=== PATIENT | male | born 1990 | race Caucasian/White ===

== ENCOUNTER → 2016-05-06 | Outpatient (CLI) | payer MEDICARE, MEDICAID ==
--- NOTE | 2016-05-06 15:49 | RAD ---
EXAM DESCRIPTION: XR ABDOMEN 1 VIEW (KUB) CLINICAL HISTORY: BILATERAL RENAL STONES COMPARISON: January 15, 2016 with FINDINGS: Several faint calcifications project over the kidneys bilaterally, and these could represent either small renal calculi or artifact from superimposed bowel contents. An IVC filter remains in place. A left ureteral stent present on the previous exam has been removed. No calcification is seen along the expected course of either ureter. IMPRESSION: Possible bilateral nephrolithiasis versus artifact from superimposed bowel contents. No radiographically apparent ureteral calculus. Electronically signed by: hCacorta Novoa DO 05/06/2016 15:48
== END ==
LOC: RAD 12:58
PROVIDERS: ATTEND Urology
DX: N20.0 Calculus of kidney (principal)

== ENCOUNTER 2016-05-30 15:20 | Emergency (ER) | payer MEDICARE, MEDICAID ==
[2016-05-30] MEDS ORDERED: KETOROLAC TROMETHAMINE INJ 30 MG/ML VIAL IV ONE (16:03)
[2016-05-30] MEDS ORDERED: SODIUM CHLORIDE 0.9% (FLUSH) 10 ML SYG IV PRN (16:03)
[2016-05-30] MEDS ORDERED: ONDANSETRON INJ 4 MG/2 ML VIAL IV ONE (16:03)
[2016-05-30] MEDS ORDERED: MORPHINE SULFATE INJ 10 MG/ML VIAL IV ONE (16:04)
[2016-05-30] MEDS ORDERED: SODIUM CHLORIDE 0.9% 10 ML VIAL ONE (16:31)
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
[2016-05-30] MEDS ORDERED: PIPERACILLIN/TAZOBACTAM 4.5 GM in SODIUM CHLORIDE 0.9% 100ML 100 ML IVPB ONE (18:22)
[2016-05-30] MEDS ORDERED: SODIUM CHLORIDE 0.9% 1000ML 1,000 ML IVS ONE (18:22)
[2016-05-30] MEDS ORDERED: PIPERACILLIN/TAZOBACTAM 2.25 GM VIAL IVPB ONE (18:37)
[2016-05-30] MEDS ORDERED: SODIUM CHLORIDE 0.9% 100ML 100 ML IVPB ONE (18:37)
[2016-05-30 18:58] VITALS: BP 117/75; TEMP 96.9; O2SAT 99
--- NOTE | 2016-06-23 23:51 | CT ---
EXAM: Abdomen/Pelvis w/Contrast CLINICAL INDICATION: 26-year-old male with LEFT upper quadrant abdominal pain and elevated WBC. EXAMINATION: CT of the abdomen and pelvis was performed following intravenous administration of contrast. Oral contrast was not administered. Multiplanar reformatted images were provided. FINDINGS: Chest: Evaluation through the lung bases reveals no focal opacity, pleural effusion or pneumothorax. Heart size is within normal limits. No pericardial effusion. Abdomen and pelvis: The liver, gallbladder, pancreas, spleen, and bilateral adrenal glands are within normal limits. Dilated appearance of the bilateral renal pelvis with hazy appearance of the cortical medullary differentiation and perinephric stranding of the fat planes, enhancement and hydroureter bilaterally with periureteral stranding findings of which are concerning for bilateral pyelonephritis. Moderate to severe LEFT hydronephrosis and hydroureter to the level of the mid ureter where there is obstruction by a large calculus measuring approximately 5 x 6 mm, (series 2, image 64). On the RIGHT there is chronic appearing severe hydronephrosis with multifocal coarse calcification compatible with nonobstructing calculi however raising the question of xanthogranulomatous pyelonephritis. There is diffuse obscuration of the perinephric fat planes, renal pelvis and ureter with enhancement of the ureter concerning for infectious process. No obstructing calculus is identified on the RIGHT. The vessels are patent and normal in caliber. No abdominopelvic lymph nodes are noted to be pathologically enlarged by CT measurement criteria. The bowel is within normal limits with extensive contrast material and fecal debris present throughout the large bowel. There is no abnormal bowel wall thickness or bowel dilation. No free air. No free abdominopelvic fluid collections. The appendix is within normal limits. The osseous structures are within normal limits. Battery pack present at the level of the anterior RIGHT hemiabdominal subcutaneous fat tissues with line terminating at the level of the L4 spinous process continuing intrathecally and terminating cephalad at the T9-10 level. IMPRESSION: 1. Diffuse hazy appearance of the bilateral kidneys with perinephric, periureteral stranding and ureteral enhancement with effacement of the renal pelvis fat planes and hazy appearance of the cortical medullary differentiation concerning for infectious process. 2. LEFT hydronephrosis and hydroureter to the level of the mid LEFT ureter secondary to 5 x 6 mm obstructing calculus. 3. 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 Further assessment with nuclear medicine scintigraphy may be considered. Electronically signed by: Leora Verde MD 05/30/2016 6:12 PM LINDERMAN MACHINE OPERATOR
--- NOTE | 2016-06-24 05:20 | RAD ---
EXAM: Abdomen Flat Upright CLINICAL INDICATION: 26-year-old male with abdominal pain and nausea. COMPARISON: None. FINDINGS:Two views of the abdomen were obtained in upright and supine positioning.Gas is seen within normal caliber small and large bowel. Extensive volume of inspissated fecal material is present throughout the large bowel suggesting fecal stasis, constipation. Battery pack overlies and obscures portions of the RIGHT hemiabdomen with lead tip terminating at the L4 level projection. IVC filter present. No free air is identified.There are no abnormal calcifications. The osseous structures are within normal limits.The lung bases are clear. IMPRESSION: Extensive volume of inspissated fecal material is present throughout the large bowel suggesting fecal stasis, constipation. Electronically signed by: Leora Verde MD 05/30/2016 4:39 PM INTERNIST MEDICAL DOCTOR MD
== END 2016-05-30 19:12 | disposition short-term general hospital (02) ==
LOC: ER 15:20
DX: N10 Acute pyelonephritis (principal); N20.1 Calculus of ureter
CPT/HCPCS: 36415; 74010; 74177; 80048; 80076; 81001; 83605; 83690; 85025; 87086; J1885; J2270; J2405; J2543; J7030; J7050

== ENCOUNTER → 2016-07-01 | Outpatient (CLI) | payer MEDICARE, MEDICAID ==
--- NOTE | 2016-07-01 14:41 | RAD ---
EXAM DESCRIPTION: XR ABDOMEN 1 VIEW (KUB) CLINICAL HISTORY: Renal stones. COMPARISON: May 30, 2016 TECHNIQUE: KUB FINDINGS: Mottled stool noted throughout the colon. Nonspecific small bowel gas pattern. Electronic device overlying the right upper quadrant and DVT filter in place. Densities within the right upper quadrant. IMPRESSION: Subtle densities overlying the lateral aspect of the right mid pole of kidney. Renal stones versus gallbladder stones cannot be excluded. Electronically signed by: Zacarias Corrales MD 07/01/2016 2:40 PM RIB KNITTER
== END | disposition home or self-care (01) ==
LOC: US 13:40
PROVIDERS: ATTEND Urology
DX: N20.0 Calculus of kidney (principal)

== ENCOUNTER → 2016-10-21 | Outpatient (CLI) | payer MEDICARE, MEDICAID ==
--- NOTE | 2016-10-22 08:39 | RAD ---
EXAM DESCRIPTION: KUB CLINICAL HISTORY: 26 years, Male, KIDNEY STONES COMPARISON: July 01 FINDINGS: Nonspecific bowel gas pattern. Stable position of vena cava filter, metallic density overlying L4 region. Generator right lower quadrant. Subtle densities overlying the right upper quadrant in the 6- 7 mm range similar to prior study probably representing nonobstructing kidney stones. No definite stone over course of either ureter. IMPRESSION: No significant difference compared to July 01. Probable nonobstructing right kidney stones again noted. Bowel gas pattern nonspecific. Electronically signed by: Godfrey Kamara MD 10/22/2016 8:38 AM CDT
== END | disposition home or self-care (01) ==
LOC: LAB.O 13:35
PROVIDERS: ATTEND Urology
DX: N20.0 Calculus of kidney (principal)

== ENCOUNTER → 2017-01-27 | Outpatient (CLI) | payer MEDICARE, MEDICAID ==
--- NOTE | 2017-01-28 09:52 | RAD ---
HISTORY: CALCULUS OF KIDNEY AND URETER TECHNIQUE: Single frontal view of the abdomen. COMPARISON: Study dated 10/21/2016. Additionally, correlation is also made to CT of the abdomen and pelvis dated 06/23/2015. FINDINGS: Nonobstructive bowel gas pattern with a large stool burden and gas seen throughout the colon to the level of the rectum. No gas-distended loops of small bowel are seen. Faint calcifications are again seen projecting over the right renal shadow with no calcifications currently appreciated over the left renal shadow or along the expected course of the ureters. An IVC filter remains in place. Battery pack is again seen projecting over the right lower quadrant with a single lead which projects over the region of the right transverse process of L4. Visualized bones are within normal limits. IMPRESSION: No significant interval change from time of prior exam as above. [address] Electronically signed by: Wilner Aceveod 01/28/2017 9:51 AM CDT Workstation: [id number]
== END | disposition home or self-care (01) ==
LOC: RAD 11:17
PROVIDERS: ATTEND Urology
DX: N20.0 Calculus of kidney (principal)

== ENCOUNTER → 2017-06-30 | Outpatient (CLI) | payer MEDICARE, MEDICAID ==
--- NOTE | 2017-06-30 14:02 | RAD ---
EXAM DESCRIPTION: KUB CLINICAL HISTORY: KIDNEY STONES COMPARISON: January 27, 2017 TECHNIQUE: Frontal views of abdomen and pelvis FINDINGS: IVC filter is stable in position. Linear metallic artifact or electrode tip continues to project just to the right of L4 vertebrae. Electronic device also noted projecting over superior right iliac crest. Several gas-filled but not abnormally distended bowel loops identified in abdomen and pelvis. No pneumatosis nor intraperitoneal free air. No pathologic calcification clearly seen overlying either renal contour. Bony structures in lumbar spine and in pelvis appear intact without injury. Visualized portions of the lung bases are grossly clear. IMPRESSION: No bowel obstruction or intraperitoneal free air No obvious calcific urolithiasis on either side. Stable position of IVC filter and electronic device. Electronically signed by: Tee Weeks MD 06/30/2017 2:01 PM OVERNIGHT CAREGIVER
== END ==
LOC: RAD 13:01
PROVIDERS: ATTEND Urology
DX: N20.0 Calculus of kidney (principal)

== ENCOUNTER → 2018-01-12 | Outpatient (CLI) | payer MEDICARE, MEDICAID ==
--- NOTE | 2018-01-12 17:10 | CT ---
EXAM DESCRIPTION: Abdomen/Pelvis w/o Contrast: Computed Tomography. CLINICAL HISTORY: R/O RIGHT AND LEFT RENAL COLLECTING STONE COMPARISON: Abdominal pelvic radiograph 06/30/2017. TECHNIQUE: Spiral-axial scans at 5 x 5 mm intervals through the abdomen and pelvis. Coronal and sagittal 2.0mm reconstructions. No IV or oral contrast. Total Exam DLP: 583.84 mGy-cm. This exam was performed according to our departmental CT dose-optimization program which includes automated exposure control, adjustment of the mA and/or kV according to patient size and/or use of iterative reconstruction technique; to reduce radiation dose to as low as reasonably achievable (ALARA). FINDINGS: Kidneys And Ureters: multiple calculi in the left kidney that were not present on the prior study. One cluster in the left upper pole measures 2.2 x 1.7 x 1.3 cm. A single stone slightly more inferior measures 7 x 6 mm. In the mid collecting system is a 5 mm radiodense stone. 3 stones in the inferior collecting system measure 4 mm, 6 mm and 5 mm. A large complex radiodense cast, measuring 4.3 cm in length and 1.8 cm in width, extends from the inferior collecting system into the proximal left ureter, and is contributing to moderate hydronephrosis in the left kidney. Thickened vinson of the proximal left ureter but no hydroureter or radiodense stone. Multiple calculi in the right kidney ranging in size from 1.2 cm to 3 mm. At least 12 stones are visualized. Moderate hydronephrosis in the right kidney with minimal perinephric edema. Periureteral edema in the right ureter throughout its entire length but no radiodense stones in the ureter or the ureterovesical junction. Pelvic Organs: Thickening of the urinary bladder wall with no radiodense stones. Lung and pleura bases: Negative. Liver, spleen, stomach, and adrenal glands: Stomach minimally distended with fluid. Spleen is small and lobulated, barbell shaped measuring approximately 4.7 cm. Liver is negative with right lobe long axis measuring 16.6 cm. Pancreas, Gallbladder, Ducts: Gallbladder visualized. Pancreas tail is abutting the small spleen otherwise unremarkable. No definite duct dilation. Aorta: Negative. Small Bowel: Normal caliber. Terminal Ileum/Cecum: Normal caliber of the TI and cecum with fecal material in the cecum. Retrocecal appendix measures 8 to 10 mm in diameter with small lymph nodes abutting the cecum and the appendix. Slightly thicker than on the prior study. No new mesenteric stranding or fascial thickening or fluid collection. Colon: Fecal material from the cecum to the mid descending colon and also distending the distal sigmoid and the rectum. Asymmetric thickening of the posterior wall of the mid rectum, on axial sequence 2, images 75-78. This was not seen on the prior study.. Mesentery: No stranding, no fascial thickening, no free air or fluid. Spine and Bony Pelvis: Lumbar levoscoliosis. Minimal bilateral hip joint space narrowing. Abdominal Wall/Back Soft Tissues: Electronic monitor or polyp in the anterior right subcutaneous tissues at the level of the upper right pelvis. IMPRESSION: 1. Significant increase in calcifications in the left kidney since the prior study with moderate hydronephrosis. Largest cast extends from the inferior collecting system into the proximal left ureter measuring over 5 cm in length, almost 2 cm in width. Significant increase in stones in the right kidney with moderate hydronephrosis. The largest stones are over 1.6 cm in length. No radiodense stones in the mid or distal ureters bilaterally or the urinary bladder. 2. Appendix is distended but no significant fatty stranding or fascial thickening or fluid collection around the appendix. Correlate for point tenderness or other clinical findings of appendicitis. 3. Constipation proximal mid and distal colon. Compression of the eccentric mass on the posterior wall of the proximal rectum, not seen on the prior study.. Electronically signed by: Howie Kohli MD 01/12/2018 5:08 PM CDT
== END ==
LOC: CT 14:37
PROVIDERS: ATTEND Urology
DX: N20.0 Calculus of kidney (principal); K59.00 Constipation, unspecified; R10.84 Generalized abdominal pain

== ENCOUNTER → 2018-05-05 | Outpatient (CLI) | payer MEDICARE, MEDICAID | LOC: GMAE 15:36 | PROVIDERS: ATTEND Family Medicine | DX: Z01.818 Encounter for other preprocedural examination (principal); G82.50 Quadriplegia, unspecified; G89.4 Chronic pain syndrome; Z51.81 Encounter for therapeutic drug level monitoring ==

== ENCOUNTER 2018-06-24 16:30 | Emergency (ER) | payer MEDICARE, MEDICAID ==
[2018-06-24 16:45] VITALS: BP 149/85; TEMP 97.7; O2SAT 100
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
[2018-06-24] MEDS ORDERED: HYDROcodone 5MG/APAP 325MG 1 EA TAB PO ONE (16:54)
--- NOTE | 2018-06-24 17:04 | RAD ---
EXAM DESCRIPTION: Shoulder,Right 2 or More Views CLINICAL HISTORY: pain after fall COMPARISON: None Available. TECHNIQUE: Two views of the right shoulder. FINDINGS: No glenohumeral malalignment or dislocation. Bones appear osteopenic. The humeral head is normally aligned with the glenoid. Oblique fracture through the peripheral clavicle is seen with moderate comminution and overlap of fragments. The more medial major fragment is displaced superiorly 2 cm. There is mild impaction. No separation at the AC joint. IMPRESSION: Comminuted fracture of the peripheral right clavicle. Electronically signed by: Jose Oleary MD 06/24/2018 5:01 PM [facility]
== END 2018-06-24 17:30 | disposition home or self-care (01) ==
LOC: ER 16:30
DX: S42.031A Displaced fracture of lateral end of right clavicle, initial encounter for closed fracture (principal); Z87.828 Personal history of other (healed) physical injury and trauma; Z79.899 Other long term (current) drug therapy; W05.0XXA Fall from non-moving wheelchair, initial encounter; Y92.9 Unspecified place or not applicable

== ENCOUNTER → 2018-07-27 | Outpatient (CLI) | payer MEDICARE, MEDICAID ==
--- NOTE | 2018-07-28 09:55 | RAD ---
EXAM DESCRIPTION: KUB CLINICAL HISTORY: KIDNEY STONE COMPARISON: None. TECHNIQUE: AP supine abdomen FINDINGS: An implanted pain device is observed in the right lower quadrant. An inferior vena caval filter is noted the bowel gas pattern is normal. No organomegaly is seen. No pathologic calcifications are observed. A 9 mm diameter calculus is seen to overlie the right kidney. No left renal calculi are observed. Large amount stool is observed throughout the colon. IMPRESSION: 1. A 9 mm diameter calculus is seen to overlie the right kidney. Electronically signed by: Wilner Osman MD 07/28/2018 9:52 AM CDT
== END ==
LOC: RAD 13:53
PROVIDERS: ATTEND Urology
DX: N20.0 Calculus of kidney (principal)

== ENCOUNTER → 2018-07-30 | Outpatient (CLI) | payer MEDICARE, MEDICAID ==
--- NOTE | 2018-07-30 11:18 | RAD ---
EXAM DESCRIPTION: Clavicle,Right CLINICAL HISTORY: 28 years Male, S42.001D COMPARISON: Previous study June 24, 2018 FINDINGS: Comminuted fracture of the peripheral right clavicle is seen with overlap of the fragments. Bridging callus formation has developed since the previous study. The alignment of the fragments is similar to previous exam. Slight widening of the AC joint. Glenohumeral alignment is normal. IMPRESSION: Comminuted fracture of the peripheral right clavicle with developing callus of early healing. Electronically signed by: Jose Oleary MD 07/30/2018 11:15 AM CDT
== END ==
LOC: RAD 08:46
PROVIDERS: ATTEND Orthopaedic Surgery
DX: S42.001D Fracture of unspecified part of right clavicle, subsequent encounter for fracture with routine healing (principal)

== ENCOUNTER → 2018-09-07 | Outpatient (CLI) | payer MEDICARE, MEDICAID ==
--- NOTE | 2018-09-08 07:57 | RAD ---
EXAM: KUB CLINICAL HISTORY: KIDNEY STONE COMPARISON STUDY: 2 view abdomen July 27, [address] abdomen pelvis January 12, 2018 TECHNICAL: Flat and upright views of the abdomen were performed. FINDINGS: Two views of the abdomen show a large amount of stool throughout the colon. There is no bowel obstruction. There is no evidence of free air. The bones are negative. Bilateral intrarenal calculi are present. The largest calculus on the right measures 12 mm. The largest calculus seen on the left is 15 mm and located medial and slightly inferior. The kidneys are partially obscured by colonic stool. An IVC filter is again noted. There is a metallic object in the posterior soft tissues associated with an implantable mechanical device in the right anterior abdominal wall. IMPRESSION: 1. Multiple bilateral intrarenal calculi with the largest and more medial in the left possibly within the proximal ureter. 2. Large amount stool suggests constipation. Electronically signed by: Ranjith Reid MD 09/08/2018 7:55 AM CDT
== END ==
LOC: RAD 14:22
PROVIDERS: ATTEND Urology
DX: N20.0 Calculus of kidney (principal)

== ENCOUNTER → 2018-09-10 | Outpatient (CLI) | payer MEDICARE, MEDICAID ==
--- NOTE | 2018-09-10 10:30 | RAD ---
EXAM DESCRIPTION: Clavicle,Right CLINICAL HISTORY: 28 years Male, S42.001D COMPARISON: Previous x-ray of the right clavicle July 30, 2018 FINDINGS: Right clavicle two x-ray views. Comminuted fracture of the peripheral right clavicle is seen. Bridging callus formation is noted. The gap between the fracture fragments appear somewhat decreased. Major peripheral fragment aligns with the AC joint. Upper lungs are clear. Degenerative spurring at the right glenohumeral joint. IMPRESSION: Healing fracture of the peripheral right clavicle. No change of alignment. Electronically signed by: Jose Oleary MD 09/10/2018 10:28 AM CDT
== END ==
LOC: RAD 09:17
PROVIDERS: ATTEND Orthopaedic Surgery
DX: S42.001D Fracture of unspecified part of right clavicle, subsequent encounter for fracture with routine healing (principal)

== ENCOUNTER → 2019-01-11 | Outpatient (CLI) | payer MEDICARE, MEDICAID ==
--- NOTE | 2019-01-12 17:07 | RAD ---
EXAM DESCRIPTION: KUB CLINICAL HISTORY: RENAL STONES COMPARISON: 07 Sep 2018 TECHNIQUE: AP supine abdomen FINDINGS: An implanted pain pump observed along the right side of the abdomen. An inferior vena caval filters observed in place with position unchanged. The bowel gas pattern is normal. Bilateral renal calcifications are observed and remain essentially unchanged. The bowel gas pattern is normal. No organomegaly is seen. IMPRESSION: Bilateral renal calcifications are observed unchanged from the previous exam. Electronically signed by: Wilner Osman MD 01/12/2019 5:05 PM CDT
== END ==
LOC: RAD 14:32
PROVIDERS: ATTEND Urology
DX: N20.0 Calculus of kidney (principal)

== ENCOUNTER → 2019-06-07 | Outpatient (CLI) | payer MEDICARE, MEDICAID | LOC: LAB.O 16:34 | PROVIDERS: ATTEND Physical Medicine & Rehabilitation | DX: M61.9 Calcification and ossification of muscle, unspecified (principal) ==

== ENCOUNTER 2019-10-14 21:44 | Emergency (ER) | payer MEDICARE, MEDICAID ==
[2019-10-14 22:01] VITALS: TEMP 98.8; O2SAT 98
[2019-10-14 23:10] VITALS: BP 152/83
[2019-10-14] MEDS ORDERED: HYDROcodone 7.5MG/APAP 325MG 1 EA TAB PO ONE (23:42)
[2019-10-14] MEDS ORDERED: AMOXICILLIN & POT CLAVULANATE 875 MG TAB PO ONE (23:42)
[2019-10-14] MEDS ORDERED: CIPROFLOXACIN 500 MG TAB PO ONE (23:42)
[2019-10-14] MEDS ORDERED: KETOROLAC TROMETHAMINE INJ 30 MG/ML VIAL IM ONE (23:42)
--- NOTE | 2019-10-14 23:48 | ED.PDOC ---
History of Present Illness - General Chief Complaint: Abdominal Pain Time Seen by Provider: 10/14/19 21:58 Source: patient, family Exam Limitations: no limitations - History of Present Illness Initial Comments: Patient is a 29-year-old male who is wheelchair-bound due to previous medical problems presenting to the emergency room secondary to vague abdominal and left-sided flank pain. The patient has had a history of multiple kidney stones in the past. They have on occasion felt like this. He is a patient of Dr. Osei. No fevers. Symptoms have been off and on for the last 24 hours. No syncope. No vomiting. We do not really have labs within the last 2 years for comparison. He does have a history of some constipation. Mild intermittent nausea as well. Timing/Duration: 24 hours Severity: moderate Improving Factors: nothing Worsening Factors: nothing Associated Symptoms: loss of appetite Allergies/Adverse Reactions: Allergies NO KNOWN ALLERGY Allergy (Verified 05/30/16 15:54) Home Medications: Ambulatory Orders Baclofen 2,000 mcg INJ DAILY 04/21/15 Potassium Citrate (Alkalinizer [Potassium Citrate ER] 1,080 mg PO BID 04/21/15 Acetamin W/Cod #3 Tab [Tylenol w/CODEINE #3] 1 ea PO Q4HR #30 tab 06/24/18 Amoxicillin & Pot Clavulanate [Augmentin Tab] 875 mg PO BID #20 tab 10/14/19 Ciprofloxacin [Cipro] 500 mg PO BID #20 tab 10/14/19 Tramadol HCl 50 mg PO Q8HR PRN #20 tab 10/14/19 Review of Systems - Review of Systems Constitutional: States: no symptoms reported EENTM: States: no symptoms reported Respiratory: States: no symptoms reported Cardiology: States: no symptoms reported Gastrointestinal/Abdominal: States: abdominal pain, nausea Genitourinary: States: no symptoms reported Musculoskeletal: States: back pain Skin: States: no symptoms reported Neurological: States: no symptoms reported - Chronic changes only Endocrine: States: no symptoms reported All other Systems: No Change from Baseline Past Medical History (General) - Patient Medical History Hx Seizures: No Hx Stroke: No Hx Dementia: No Hx Asthma: No Hx of COPD: No Hx Cardiac Disorders: No Hx Congestive Heart Failure: No Hx Pacemaker: No Hx Hypertension: No Hx Thyroid Disease: No Hx Diabetes: No Hx Gastroesophageal Reflux: No Hx Renal Disease: No Hx Cancer: No Hx of HIV: No Hx Hepatitis C: No Hx MRSA: No Surgical History: other - Vaccination History Hx Tetanus, Diphtheria Vaccination: Yes Hx Influenza Vaccination: No Hx Pneumococcal Vaccination: No - Social History Hx Tobacco Use: Yes - Vape Hx Chewing Tobacco Use: No Hx Alcohol Use: Yes Hx Substance Use: No Hx Substance Use Treatment: No Hx Depression: No Feels Threatened In Home Enviroment: No Feels Threatened In a Relationship: No Hx Physical Abuse: No Hx Emotional Abuse: No Hx Suspected Abuse: No - Female History Patient is a Female of Child Bearing Age (10 -59 yrs old): No - Triage Comment ED Triage Comment: The patient is complaining of upper left and right quadrant abdominal pain that radiats to his back right side. Family Medical History - Family History Mother Family History: No Known Living Status: Still Living Physical Exam - Physical Exam General Appearance: Alert, Anxious Eye Exam: bilateral normal Ears, Nose, Throat: hearing grossly normal, normal pharynx Neck: non-tender - Previous tracheostomy site is noted, supple Respiratory: no respiratory distress, no accessory muscle use Cardiovascular/Chest: normal peripheral pulses, no edema Peripheral Pulses: radial,right: 2+, radial,left: 2+ Gastrointestinal/Abdominal: non tender, soft Rectal Exam: deferred Back Exam: CVA tenderness (L) Extremity: normal range of motion - Given his chronic limitations, no pedal edema, normal capillary refill Neurologic: blintze roller II-XII nml as tested, alert, normal mood/affect, oriented x 3 Skin Exam: normal color Comments: Vital Signs - 24 hr 10/14/19 10/14/19 10/14/19 21:55 22:44 23:00 Temperature 98.8 F Pulse Rate [ 75 68 88 Pulse Ox] Respiratory 16 18 18 Rate Blood Pressure 127/71 137/89 152/83 [Left Arm] O2 Sat by Pulse 98 98 98 Oximetry 10/14/19 22:09 Abdomen Flat & Upright [RAD] Stat moderate stool in the ascending colon. No obstruction. No obvious perforation. Official read is still pending due to transmission difficulties. 10/14/19 22:12 Urine Culture Stat 10/14/19 23:09 Abdoment/Pelvis w/o Contrast [CT] Stat by my limited read the patient has an obstructing 1.1 cm stone about long term down the left ureter. He does have multiple chronic renal cystic type structures. Official read is still pending due to transmission difficulty of the images due to complications with [employer]. Family and patient do understand that I am not a radiologist. The report will be reviewed when it comes in. Laboratory Results - last 24 hr 10/14/19 10/14/19 10/14/19 22:12 23:03 23:03 WBC 19.8 H RBC 5.34 Hgb 15.0 Hct 45.8 MCV 85.9 MCH 28.1 MCHC 32.7 L RDW 15.2 H Plt Count 311 MPV 8.8 Absolute Neuts (auto) 15.20 H Absolute Lymphs (auto) 2.30 Absolute Monos (auto) 2.10 H Absolute Eos (auto) 0.00 Absolute Basos (auto) 0.10 Neutrophils % 77.1 Lymphocytes % 11.5 L Monocytes % 10.5 H Eosinophils % 0.2 L Basophils % 0.7 Sodium 137 Potassium 3.5 L Chloride 104 Carbon Dioxide 22 Anion Gap 14.5 BUN 26 H Creatinine 2.23 H BUN/Creatinine Ratio 11.7 Random Glucose 94 Serum Osmolality 278.3 Lactic Acid Calcium 9.1 Total Bilirubin 0.7 AST 21 ALT 17 Alkaline Phosphatase 74 Serum Total Protein 8.3 H Albumin 4.3 Globulin 4.0 H Albumin/Globulin Ratio 1.1 Amylase 75 Lipase Urine Color Other Urine Appearance Cloudy Urine pH 7.5 Ur Specific Crawford 1.020 Urine Protein 100 H Urine Glucose (UA) Negative Urine Ketones 15 H Urine Blood Large H Urine Nitrite Negative Urine Bilirubin Negative Urine Urobilinogen 0.2 Ur Leukocyte Esterase Large H Urine RBC Tntc H Urine WBC Tntc H Ur Epithelial Cells 0 Urine Bacteria 3+ H 10/14/19 10/14/19 23:03 23:03 WBC RBC Hgb Hct MCV MCH MCHC RDW Plt Count MPV Absolute Neuts (auto) Absolute Lymphs (auto) Absolute Monos (auto) Absolute Eos (auto) Absolute Basos (auto) Neutrophils % Lymphocytes % Monocytes % Eosinophils % Basophils % Sodium Potassium Chloride Carbon Dioxide Anion Gap BUN Creatinine BUN/Creatinine Ratio Random Glucose Serum Osmolality Lactic Acid 1.0 Calcium Total Bilirubin AST ALT Alkaline Phosphatase Serum Total Protein Albumin Globulin Albumin/Globulin Ratio Amylase Lipase 31 Urine Color Urine Appearance Urine pH Ur Specific Crawford Urine Protein Urine Glucose (UA) Urine Ketones Urine Blood Urine Nitrite Urine Bilirubin Urine Urobilinogen Ur Leukocyte Esterase Urine RBC Urine WBC Ur Epithelial Cells Urine Bacteria Progress - Progress Progress: 10/14/19 23:51 The patient is a 29-year-old male presented emergency room with what appears to be abdominal and flank pain due to an obstructing left mid ureteral stone approximately 1.1 cm in width. Official read for the CT scan is still pending due to transmission difficulties with [employer] at this time. Once the final report is back we will review it to see if there is any other pathology noted, and intervene further as needed. The patient has a significantly abnormal urinalysis and a moderately elevated white blood cell count. This does seem to indicate what is most likely a chronic urinary tract infection. Urine is being cultured. The patient does not appear to be septic. The patient is going to be placed on Augmentin and ciprofloxacin for double coverage, with first dose is given tonight. Family is to contact Dr. Osei in the morning to make arrangements for follow-up and intervention as soon as possible. A copy of the disc is being sent for Dr. Osei's review. Family and patient agree with this plan. They have deferred admission or transfer at this time. He will also be written for some tramadol for pain control as an outpatient. ER warnings are given for any worsening. mary hidalgo [phone] 10/14/19 23:58 [facility] consulted Departure - Departure Clinical Impression: Calcium ureterolithiasis Urinary tract infection Qualifiers: Urinary tract infection type: site unspecified Hematuria presence: without tanna turia Qualified Code(s): N39.0 - Urinary tract infection, site not specified Leukocytosis Qualifiers: Leukocytosis type: lymphocytosis Qualified Code(s): D72.820 - Lymphocytosis (symptomatic) Disposition: Discharge to Home or Self Care Condition: Fair Departure Forms: ED Discharge - Pt. Copy, Patient Portal Self Enrollment Instructions: Kidney Stones (DC), Urinary Tract Infections in Adults Diet: regular diet Activity: increase activity as tolerated Referrals: Juma Honeycutt MD [Primary Care Provider] - 1-5 Days Prescriptions: Tramadol HCl 50 mg PO Q8HR PRN #20 tab PRN Reason: Moderate Pain Amoxicillin & Pot Clavulanate [Augmentin Tab] 875 mg PO BID #20 tab Ciprofloxacin [Cipro] 500 mg PO BID #20 tab Home Medications: Ambulatory Orders Baclofen 2,000 mcg INJ DAILY 04/21/15 Potassium Citrate (Alkalinizer [Potassium Citrate ER] 1,080 mg PO BID 04/21/15 Acetamin W/Cod #3 Tab [Tylenol w/CODEINE #3] 1 ea PO Q4HR #30 tab 06/24/18 Amoxicillin & Pot Clavulanate [Augmentin Tab] 875 mg PO BID #20 tab 10/14/19 Ciprofloxacin [Cipro] 500 mg PO BID #20 tab 10/14/19 Tramadol HCl 50 mg PO Q8HR PRN #20 tab 10/14/19 Additional Instructions: The patient is a 29-year-old male presented emergency room with what appears to be abdominal and flank pain due to an obstructing left mid ureteral stone approximately 1.1 cm in width. Official read for the CT scan is still pending due to transmission difficulties with [employer] at this time. Once the final report is back we will review it to see if there is any other pathology noted, and intervene further as needed. The patient has a significantly abnormal urinalysis and a moderately elevated white blood cell count. This does seem to indicate what is most likely a chronic urinary tract infection. Urine is being cultured. The patient does not appear to be septic. The patient is going to be placed on Augmentin and ciprofloxacin for double coverage, with first dose is given tonight. Family is to contact Dr. Osei in the morning to make arrangements for follow-up and intervention as soon as possible. A copy of the disc is being sent for Dr. Osei's review. Family and patient agree with this plan. They have deferred admission or transfer at this time. He will also be written for some tramadol for pain control as an outpatient. ER warnings are given for any worsening.
--- NOTE | 2019-10-15 05:17 | RAD ---
EXAM: XR Abdomen, 2 Views CLINICAL HISTORY: The patient is 29 years old and is Male; upper abd pain TECHNIQUE: Two views total of the abdomen/pelvis including upright view of the abdomen. COMPARISON: January 11, 2019. FINDINGS: Lower thorax: Lung bases are clear. Intraperitoneal space: No free air. Gastrointestinal tract: Gas in the right and transverse colon. No dilated bowel loops or evidence of obstruction. Organs: Right nephrolithiasis again noted. Bones/joints: No acute fracture visualized. Tubes, lines and devices: IVC filter again noted. Electronic monitor stimulator device again noted in the right anterior abdomen wall. IMPRESSION: 1. Gas in the right and transverse colon. No dilated bowel loops or evidence of obstruction. 2. Right nephrolithiasis again noted. 3. Devices as above. Electronically signed by: Melita Amato MD 10/15/2019 5:15 AM CDT
--- NOTE | 2019-10-15 05:17 | CT ---
EXAM: CT Abdomen and Pelvis Without Intravenous Contrast CLINICAL HISTORY: The patient is 29 years old and is Male; uti leukocytosis, hx kidney stones TECHNIQUE: Axial computed tomography images of the abdomen and pelvis without intravenous contrast. Sagittal and coronal reformatted images were created and reviewed. This CT exam was performed using one or more of the following dose reduction techniques: automated exposure control, adjustment of the mA and/or kV according to patient size, and/or use of iterative reconstruction technique. COMPARISON: CT of the abdomen and pelvis January 12, 2018 FINDINGS: LUNG BASES: Unremarkable. No mass. No consolidation. ABDOMEN: LIVER: Homogeneous without focal mass. GALLBLADDER AND BILE DUCTS: No calcified stones. No ductal dilation. PANCREAS: The pancreas is mildly atrophic. No ductal dilation. SPLEEN: Several splenules are noted within the left upper quadrant. ADRENALS: Unremarkable. No mass. KIDNEYS AND URETERS: Severe left hydronephrosis and proximal/mid hydroureter is present secondary to multiple large left ureteral calculi, the distal most calculus measures 2 cm in craniocaudal dimension. Edema of the left kidney with perinephric and periureteral stranding is present. Moderate to severe right hydronephrosis is present. Cortical thinning of both kidneys is noted. Bilateral large intrarenal calcifications are present. STOMACH AND BOWEL: Stomach is minimally distended. The small bowel is normal in caliber. Stool is noted within the right colon. There is no mucosal thickening or evidence of bowel obstruction. PELVIS: APPENDIX: No findings to suggest acute appendicitis. BLADDER: The bladder is not well distended. REPRODUCTIVE: Unremarkable as visualized. ABDOMEN and PELVIS: INTRAPERITONEAL SPACE: Unremarkable. No free air. No significant fluid collection. BONES/JOINTS: No acute fracture. SOFT TISSUES: Present at the level of the anterior right hemiabdomen subcutaneous tissues with the line terminating at the level of the L4 spinous process and continuing intrathecally and terminates cephalad to T9-T10 level. VASCULATURE: And infrarenal IVC filter is in place. No abdominal aortic aneurysm. LYMPH NODES: Unremarkable. No enlarged lymph nodes. OTHER FINDINGS: . IMPRESSION: 1. Severe left hydronephrosis and proximal/mid hydroureter is present secondary to multiple large left ureteral calculi, the distal most calculus measures 2 cm in craniocaudal dimension. The left kidney is edematous with moderate perinephric stranding. 2. Large bilateral nephrolithiasis with bilateral severe hydronephrosis, chronic in appearance. Electronically signed by: Vinita Valadez MD 10/15/2019 5:15 AM CDT
== END 2019-10-15 00:05 | disposition home or self-care (01) ==
LOC: ER 21:44
DX: N20.1 Calculus of ureter (principal); N39.0 Urinary tract infection, site not specified; D72.829 Elevated white blood cell count, unspecified; Z87.442 Personal history of urinary calculi; F17.290 Nicotine dependence, other tobacco product, uncomplicated
CPT/HCPCS: 36415; 74019; 74176; 80053; 81001; 82150; 83605; 83690; 85025; 87086; J1885

== ENCOUNTER → 2019-10-18 | Outpatient (CLI) | payer MEDICARE, MEDICAID ==
--- NOTE | 2019-10-19 07:38 | RAD ---
EXAM DESCRIPTION: Chest,2 Views CLINICAL HISTORY: PRE OP COMPARISON: None FINDINGS: Two-view chest x-ray shows cardiomediastinal silhouette and pulmonary vasculature to be within normal limits. The lungs are normally aerated and clear. Costophrenic angles are sharp. Osseous structures are unremarkable IMPRESSION: No radiographic evidence of acute cardiopulmonary disease. Electronically signed by: Smooth Mcgrath MD 10/19/2019 7:37 AM CDT
== END ==
LOC: LAB.O 14:02
PROVIDERS: ATTEND Urology
DX: Z01.818 Encounter for other preprocedural examination (principal); N20.0 Calculus of kidney; N20.1 Calculus of ureter

== ENCOUNTER → 2020-05-15 | Outpatient (CLI) | payer MEDICARE, MEDICAID ==
--- NOTE | 2020-05-16 07:52 | RAD ---
EXAM DESCRIPTION: KUB CLINICAL HISTORY: LEFT RENAL STONE COMPARISON: January 11, 2019 IMPRESSION: Single AP supine view of the abdomen obtained on 2 radiographs shows a nonspecific, nonobstructive bowel gas pattern. Kidneys are partly secured by overlying bowel gas and stool in the colon. Calcification seen overlying the lower pole region of the left kidney on previous exam are not appreciated on today's exam, but Could Be Obscured by Overlying Bowel Gas. The Calcification Seen to the Left of L1 and L2 in the Proximal Ureter on Previous Exam Are Also Resolved. IVC filter remains in place. Pain infusion pump over the right mid abdomen is again seen. Electronically signed by: Smooth Mcgrath MD 05/16/2020 7:51 AM TALKBACK HOST
== END ==
LOC: RAD 14:41
PROVIDERS: ATTEND Urology
DX: N20.2 Calculus of kidney with calculus of ureter (principal); Z95.828 Presence of other vascular implants and grafts

== ENCOUNTER → 2020-06-05 | Outpatient (CLI) | payer MEDICARE, MEDICAID ==
--- NOTE | 2020-06-06 12:01 | CT ---
EXAM DESCRIPTION: Abdoment/Pelvis w/o Contrast: Computed Tomography. CLINICAL HISTORY: HEMATURIA COMPARISON: CT scan of the abdomen and pelvis noncontrast September 2019. TECHNIQUE: Spiral-axial scans at 2.5 x 2.5 mm intervals through the abdomen and pelvis. Coronal and sagittal 2.0 mm reconstructions. No IV or oral contrast. Total Exam DLP: 762 mGy-cm. This exam was performed according to our departmental CT dose-optimization program which includes automated exposure control, adjustment of the mA and/or kV according to patient size and/or use of iterative reconstruction technique; to reduce radiation dose to as low as reasonably achievable (ALARA). FINDINGS: Kidneys: cystlike structures versus dilated calyces in the left kidney. The largest is in the lateral mid cortex measuring 4.7 x 4.3 cm but appears to communicate with the renal pelvis. Cystlike structure 1.6 x 1.6 x 1.5 cm stone in the inferior collecting system of the upper pole associated with debris extending into the upper renal pelvis. Superior medial left kidney containing debris and a 10 x 10 mm stone. 12 x 7 mm stone more laterally in the upper collecting system. 3 additional smaller stones in the upper collecting system with greatest diameter 10 mm or less. 15 x 9.6 x 5.9 mm stone in the junction of the lower collecting system and inferior renal pelvis. 10.6 x 6.5 mm stone in the posterior mid collecting system. 7.8 x 5.5 mm stone along with complex stone measuring 12.7 x 6 x 8.2 mm in the inferior collecting system. Hydronephrosis less severe in the lower collecting system. Moderate hydronephrosis in the right renal collecting system. Largest stone in the inferior aspect of the superior collecting system measures 13 x 6 mm. Collection of gravel and a stone measuring 7 x 5 mm in the posterior mid collecting system. Largest stone in the inferior collecting system measures 15 x 11 x 12 mm and is posterior. Smaller stone in the very inferior collecting system measures 8 x 6 mm. Ureters: Marked hydronephrosis of the proximal and mid left ureter with minimal periureteral edema. 2 elongated stone casts are seen in the ureter at the level of the upper sacrum with long axis parallel to the ureteral lumen measuring 1.5 cm proximal cast and the distal cast is 1.9 cm. The ureteral caliber just above these casts is 1.4 x 1.3 cm. Ureter distal to these casts is normal caliber with no periureteral edema. Right ureter is unremarkable. Minimal edema around the proximal ureter but no radiodense stones. Pelvic Organs: Minimal distention of the urinary bladder with no radiodense stones. No free fluid in the pelvis. Prostate gland largest transverse dimension is 4.1 x 2.4 cm with minimal impression on the base and posterior inferior urinary bladder wall. Prostate also impressing on the seminal vesicles. No large masses in the pelvic cavity. Lung and pleura bases: Subpleural groundglass nodules in the lung bases 5 mm or less in diameter. No consolidating infiltrate or pleural effusion. Liver, spleen, stomach, and adrenal glands: Uniform density of the liver. Spleen is small and interpreted to be represented by a bilobed structure measuring 5.6 x 3.1 cm. Stomach is small. Adrenal glands stable. Pancreas, Gallbladder, Ducts: Gallbladder small. Normal caliber of the common bile duct. Pancreatic duct not well seen. No focal enlargement in the pancreas or peripancreatic fatty changes. Aorta: Normal caliber with 2.0 x 2.1 x 0.9 cm lymph node at the level of L2-L3, inferior to the right renal artery; other smaller periaortic nodes on the right. However elongated left periaortic mass is visualized with upper margin inferior to the left renal artery and vein. Ill-defined borders with adjacent fatty stranding. This lymph node mass measures 3.7 x 2.0 x 1.3 cm. Smaller lymph node inferior to this larger lymph node also demonstrates ill-defined margins and increased density of the surrounding fat. In apex of inferior vena cava filter is at the upper L2 vertebral body level. The inferior anchor is extend externally to the lumen of the vena cava just above the level of the aortic bifurcation with one leg extending into the anterior right psoas muscle. Small Bowel: Scattered fluid and gas with no air-fluid levels. Terminal Ileum/Cecum: Normal caliber. Retrocecal appendix minimally distended with gas. No inflammatory changes in the fat. Small pericecal mesenteric lymph nodes. Colon: Moderate fecal burden in the colon mostly proximal and distal. Mildly redundant sigmoid colon. No complications. Mesentery: No free air or free fluid. Abnormal regions as previously described. Spine and Bony Pelvis: Lumbar levoscoliosis. Bulging L5-S1 disc. Minimal thoracic spondylosis. Abdominal Wall/Back Soft Tissues: Mechanical electronic device lower right abdomen and pelvis connected to dorsal column electrode at T10 and T11. IMPRESSION: 1. Multiple large stones and casts in the bilateral kidneys with bilateral hydronephrosis. Large catheter stone in the upper collecting system and the left kidney is more fragmented since the prior study. One or more of these stones may have migrated into the inferior collecting system and/or stone enlargement in the inferior collecting system. Posterior mid collecting system stone in the right kidney is more fragmented. More fragmentation of an upper - posterior collecting system stone since the prior study. Inferior mid collecting system stone located posteriorly has enlarged since the prior study. 2. Marked hydroureter on the left from the renal pelvis to the proximal sacrum level. 2 elongated cast-like stones in the proximal ureter on the prior study have migrated distally. Cast stone in the distal left ureter may have been retrieved or undergone fragmentation and removal as it is no longer seen. 3. Right side para-aortic nodes have enlarged with more reactive changes since the prior study. Right side para-aortic node inferior to the right renal artery is stable. Inferior legs of the inferior vena cava filter again noted to be extraluminal. Electronically signed by: Howie Kohli MD 06/06/2020 11:59 AM [employer]CISION [employer]SEM[employer]ER
== END ==
LOC: CT 12:24
PROVIDERS: ATTEND Urology
DX: N20.0 Calculus of kidney (principal); N13.4 Hydroureter; R59.0 Localized enlarged lymph nodes; Z95.828 Presence of other vascular implants and grafts